=== PATIENT | male | born 1990 | race African-American/Black ===

== ENCOUNTER 2020-01-23 21:17 | Emergency (ER) | payer OTHER ==
[~2020-01-23] VITALS: Ht 172.7 cm; Wt 84.8 kg
[2020-01-24] MEDS ORDERED: IBUPROFEN 800800 M1 PO (00:08)
[2020-01-24] MEDS ORDERED: FLEXERIL PO (00:08)
[2020-01-24 00:17] VITALS: BP 141/72
== END 2020-01-24 00:17 | disposition home or self-care (01) ==
LOC: ER 21:17
DX: M54.2 Cervicalgia (principal); V59.9XXA Occupant (driver) (passenger) of pick-up truck or van injured in unspecified traffic accident, initial encounter; Y93.89 Activity, other specified; Y92.89 Other specified places as the place of occurrence of the external cause; Y99.8 Other external cause status

== ENCOUNTER 2020-07-03 21:51 | Emergency (ER) | payer OTHER ==
[~2020-07-03] VITALS: Ht 172.7 cm; Wt 90.7 kg
[~2020-07-03 21:51] MED LIST: FLEXERIL PO; IBUPROFEN 800800 M1 PO
[2020-07-03 21:54] VITALS: BP 139/86
[2020-07-03] MEDS ORDERED: NAPROSYN500 MG PO (22:58)
[2020-07-03] MEDS ORDERED: NORFLEX100 MG PO (22:58)
== END 2020-07-03 23:10 | disposition home or self-care (01) ==
LOC: ER 21:51
DX: S16.1XXA Strain of muscle, fascia and tendon at neck level, initial encounter (principal); S09.90XA Unspecified injury of head, initial encounter; Z79.899 Other long term (current) drug therapy; V49.49XA Driver injured in collision with other motor vehicles in traffic accident, initial encounter; Y93.I9 Activity, other involving external motion; Y92.488 Other paved roadways as the place of occurrence of the external cause; Y99.8 Other external cause status